=== PATIENT | female | born 1980 | race Caucasian/White ===

== ENCOUNTER 2018-11-16 12:22 | Emergency (ER) | payer SELFPAY ==
--- NOTE | 2018-11-16 12:29 | Emergency Department Report ---
Blank Doc - Documentation Documentation: This is a 38-year-old female that presents with vaginal bleeding after vo iding. Stated is about 4 months but is not sure. Patient also stated has pain in the left lower pelvic area. Denies any care. [place] present during exam. This initial assessment/diagnostic orders/clinical plan/treatment(s) is/are subject to change based on patient's health status, clinical progression and re- assessment by fellow clinical providers in the ED. Further treatment and workup at subsequent clinical providers discretion. Patient/guardians urged not to elope from the ED as their condition may be serious if not clinically assessed and managed. Initial orders include: 1- Patient sent to [facility] for further evaluation and treatment 2- labs 3- UA 4- US OB
[2018-11-16 12:30] VITALS: BP 130/76
[2018-11-16 12:47] LABS: Basophils # (Auto) 0.1 K/mm3 (0.0-0.1); Basophils % (Auto) 0.7 % (0.0-1.8); Eosinophils # (Auto) 0.3 K/mm3 (0.0-0.4); Eosinophils % (Auto) 2.6 % (0.0-4.3); Lymphocytes # (Auto) 3.6 K/mm3 (1.2-5.4); Lymphocytes % (Auto) 29.1 % (13.4-35.0); Mean Corpuscular HGB Conc 36 % (30-34); Mean Corpuscular Volume 90 fl (79-97); Monocytes # (Auto) 0.8 K/mm3 (0.0-0.8); Monocytes % (Auto) 6.6 % (0.0-7.3); Platelet Count 345 K/mm3 (140-440); Red Blood Count 4.32 M/mm3 (3.65-5.03); Red Cell Distribution Width 12.4 % (13.2-15.2)
[2018-11-16 12:55] LABS: Hemoglobin 14.1 gm/dl (10.1-14.3)
[2018-11-16 13:34] LABS: Amorphous Crystals,Urine Few; Bacteria,Urine 1+ /HPF (Negative); Bilirubin,Urine NEG (Negative); Blood,Urine NEG (Negative); Color,Urine Yellow (Yellow); Protein,Urine <15 mg/dL mg/dL (Negative); Urobilinogen,Urine < 2.0 mg/dL (<2.0)
--- NOTE | 2018-11-16 14:17 | Ultrasound Report ---
OB sonogram: History: Pelvic pain with vaginal bleeding. Findings: Uterus measures 14.6 x 6.5 x 7.3 cm. Single intrauterine gestation is noted. CRL of fetus is 39.1 mm corresponding to 10 weeks and 6 days of gestation. No heart rate was observed. Right ovary 2.5 x 2.2 x 2.2 cm. No mass. Left ovary 2.9 x 2.1 x 2.2 cm. No mass. Impression: Intrauterine demise.
--- NOTE | 2018-11-16 14:41 | Emergency Department Report ---
ED Female HPI - General Chief complaint: Vaginal Bleeding Stated complaint: /STOMACH PAIN Time Seen by Provider: 11/16/18 12:26 Source: patient Mode of arrival: Ambulatory Limitations: No Limitations - History of Present Illness Initial comments: This is a 38-year-old 002 who presents at approximately tingling sensation stating that she is expressing some light vaginal bleeding for the past 5 days. Patient states that today she starts racing a little bit of pelvic pain so she decided coming to be evaluated. Patient states that she just recently moved here from [place] and has not seen an SAP CRM DEVELOPER for this . She denies nausea vomiting chest pain shortness of breath or any other symptoms. MD Complaint: vaginal bleeding - Related Data Allergies Allergy/AdvReac Type Severity Reaction Status Date / Time No Known Allergies Allergy Unverified 11/16/18 12:25 ED Review of Systems ROS: Stated complaint: /STOMACH PAIN Other details as noted in HPI Comment: All other systems reviewed and negative ED Past Medical Hx - Past Medical History Previous Medical History?: No - Surgical History Past Surgical History?: No - Social History Smoking Status: Current Every Day Smoker Substance Use Type: None ED Physical Exam - General Limitations: No Limitations General appearance: alert, in no apparent distress - Head Head exam: Present: atraumatic, normocephalic - Eye Eye exam: Present: normal appearance - ENT ENT exam: Present: mucous membranes moist - Neck Neck exam: Present: normal inspection - Respiratory Respiratory exam: Present: normal lung sounds bilaterally. Absent: respiratory distress - Cardiovascular Cardiovascular Exam: Present: regular rate, normal rhythm. Absent: systolic murmur, diastolic murmur, rubs, gallop - GI/Abdominal GI/Abdominal exam: Present: soft, normal bowel sounds. Absent: distended, tenderness, guarding, rebound - Extremities Exam Extremities exam: Present: normal inspection - Back Exam Back exam: Present: normal inspection - Neurological Exam Neurological exam: Present: alert, oriented X3 - Psychiatric Psychiatric exam: Present: normal affect, normal mood - Skin Skin exam: Present: warm, dry, intact, normal color. Absent: rash ED Course Vital Signs 11/16/18 12:26 Temperature 98.2 F Pulse Rate 82 Respiratory 16 Rate Blood Pressure 130/76 O2 Sat by Pulse 100 Oximetry ED Medical Decision Making - Lab Data Result diagrams: 11/16/18 12:37 - Radiology Data Radiology results: report reviewed, image reviewed Ultrasound Report Signed Patient: PATRICK PISANO MR#: [id number] 7 : 1980 Acct:[id number] Age/Sex: 38 / F ADM Date: 11/16/18 Loc: ED Attending Dr: Ordering Physician: ESTEPHANIA MANCINI NP Date of Service: 11/16/18 Procedure(s): US OB <= 14 weeks fetus Accession Number(s): [id number] cc: ESTEPHANIA MANCINI NP OB sonogram: History: Pelvic pain with vaginal bleeding. Findings: Uterus measures 14.6 x 6.5 x 7.3 cm. Single intrauterine gestation is noted. CRL of fetus is 39.1 mm corresponding to 10 weeks and 6 days of gestation. No heart rate was observed. Right ovary 2.5 x 2.2 x 2.2 cm. No mass. Left ovary 2.9 x 2.1 x 2.2 cm. No mass. Impression: Intrauterine demise. Transcribed By: PTP Dictated By: RHEA PARKER MD Electronically Authenticated By: RHEA PARKER MD Signed Date/Time: 11/16/18 7458 - Medical Decision Making 38-year-old female presents with intrauterine demise per Ultrasound. Discussed case with SAP CRM DEVELOPER attending Dr. Wiggins who agreed for patient to follow- up in his office outpatient to schedule it D&C. Patient understood all instructions. Patient is stable upon discharge she is not having any BLEEDING BLEEDING IS CONTROLLED. VITAL SIGNS ARE NORMAL SHE IS IN NO DISTRESS Bleeding precautions given to patient. Discussed the patient. Bleeding worsens to return to ED immediately. Critical care attestation.: If time is entered above; I have spent that time in minutes in the direct care of this critically ill patient, excluding procedure time. ED Disposition Clinical Impression: IUFD at less than 20 weeks of gestation Disposition: DC-01 TO HOME OR SELFCARE Is pt being admited?: No Does the pt Need Aspirin: No Condition: Stable Instructions: Threatened Miscarriage (ED), Spontaneous Miscarriage (ED) Additional Instructions: Make sure to follow up with the SAP CRM DEVELOPER as discussed. Call and make an appointment with Dr. Jermaine Wiggins who was seen ON office this week to schedule dilation and curettage. EKG Tylenol as stated for pain or Motrin. If you have any worsening symptoms or develop new symptoms please return to ED immediately. Referrals: MARION CHURCH MD [Primary Care Provider] - 3-5 Days JERMAINE WIGGINS MD [Staff Physician] - 3-5 Days Time of Disposition: 15:00
== END 2018-11-16 15:13 | disposition home or self-care (01) ==
LOC: ED 12:22
DX: O02.1 Missed abortion (principal); O99.331 Smoking (tobacco) complicating pregnancy, first trimester; F17.200 Nicotine dependence, unspecified, uncomplicated; Z3A.10 10 weeks gestation of pregnancy
CPT/HCPCS: 36415; 76801; 81001; 84702; 85025; 86850; 86900; 86901

== ENCOUNTER 2018-11-20 23:20 | Emergency (ER) | payer OTHER ==
[2018-11-20 23:26] VITALS: BP 120/82
[2018-11-20 23:44] LABS: Basophils # (Auto) 0.1 K/mm3 (0.0-0.1); Basophils % (Auto) 0.6 % (0.0-1.8); Eosinophils # (Auto) 0.4 K/mm3 (0.0-0.4); Hematocrit 41.2 % (30.3-42.9); Hemoglobin 14.4 gm/dl (10.1-14.3); Lymphocytes # (Auto) 3.9 K/mm3 (1.2-5.4); Lymphocytes % (Auto) 34.8 % (13.4-35.0); Mean Corpuscular HGB Conc 35 % (30-34); Mean Corpuscular Volume 90 fl (79-97); Monocytes # (Auto) 0.6 K/mm3 (0.0-0.8); Monocytes % (Auto) 5.2 % (0.0-7.3); Platelet Count 375 K/mm3 (140-440); Red Blood Count 4.59 M/mm3 (3.65-5.03); Red Cell Distribution Width 12.5 % (13.2-15.2)
[2018-11-21] MEDS ORDERED: TYLENOL PO ONE (00:04)
[2018-11-21] MEDS ORDERED: ZOFRAN ODT PO ONE (00:04)
[2018-11-21 00:06] LABS: BUN/Creatinine Ratio 24; Blood Urea Nitrogen 12 mg/dL (7-17); Calcium 9.5 mg/dL (8.4-10.2); Hemolysis Index 9
[2018-11-21 00:19] LABS: Bilirubin,Urine NEG (Negative); Blood,Urine LG (Negative); Color,Urine Red (Yellow); Urobilinogen,Urine < 2.0 mg/dL (<2.0)
[2018-11-21 00:24] LABS: RBC,Urine > 182.0 /HPF (0.0-6.0); WBC,Urine > 182.0 /HPF (0.0-6.0)
[2018-11-21 00:25] LABS: Mucus,Urine 1+ /HPF
--- NOTE | 2018-11-21 00:51 | Emergency Department Report ---
ED HPI - General Chief complaint: Vaginal Bleeding Stated complaint: MISCARRIAGE/BLEEDING/PAIN Time Seen by Provider: 11/21/18 00:03 Source: patient Mode of arrival: Ambulatory Limitations: No Limitations - History of Present Illness Initial comments: Patient 38-year-old female patient presents for abdominal pain with vaginal bleeding 2 days states she passed some clots and yesterday there is approximately 11 weeks patient is A0 patient does not currently have an VISITOR USE ASSISTANT doctor there is no fevers or chills is no dizziness no lightheadedness no nausea vomiting abdominal pain is described as 4/10 cramping that is continuous MD Complaint: abdominal pain, vaginal bleeding Onset/Timin -: days(s) Location: pelvis Radiation: LLQ, RLQ Severity: moderate Severity scale (0 -10): 4 Quality: cramping Consistency: constant Improves with: none Worsens with: none Associated symptoms: vaginal bleeding Vaginal bleeding: clots :: Yes Number of weeks : 11 OB History - Current : no complications OB History - Previous Pregnancies: no complications - Related Data : 3 Para: 2 Ab: 0 Previous Rx's Medication Instructions Recorded Last Taken Type Ibuprofen 800 mg PO TID PRN #30 tablet 11/21/18 Unknown Rx Nitrofurantoin Monohyd/M-Cryst 100 mg PO BID 7 Days #14 capsule 11/21/18 Unknown Rx [Macrobid 100 mg Capsule] Allergies Allergy/AdvReac Type Severity Reaction Status Date / Time No Known Allergies Allergy Unverified 11/16/18 12:25 ED Review of Systems ROS: Stated complaint: MISCARRIAGE/BLEEDING/PAIN Other details as noted in HPI Constitutional: denies: chills, fever Eyes: denies: eye pain, eye discharge, vision change ENT: denies: ear pain, throat pain Respiratory: denies: cough, shortness of breath, wheezing Cardiovascular: as per HPI Endocrine: no symptoms reported Gastrointestinal: abdominal pain, nausea, vomiting. denies: diarrhea, constipation, hematemesis, melena, hematochezia Genitourinary: denies: urgency, dysuria, frequency, hematuria, discharge, abnormal menses, dyspareunia Musculoskeletal: denies: back pain, joint swelling, arthralgia Skin: denies: rash, lesions ED Past Medical Hx - Past Medical History Previous Medical History?: No - Surgical History Past Surgical History?: No - Social History Smoking Status: Never Smoker Substance Use Type: None - Medications Home Medications: Home Medications Medication Instructions Recorded Confirmed Last Taken Type Ibuprofen 800 mg PO TID PRN #30 tablet 11/21/18 Unknown Rx Nitrofurantoin Monohyd/M-Cryst 100 mg PO BID 7 Days #14 capsule 11/21/18 Unknown Rx [Macrobid 100 mg Capsule] ED Physical Exam - General Limitations: No Limitations ED Course Vital Signs 11/20/18 23:23 Temperature 98.2 F Pulse Rate 79 Respiratory 18 Rate Blood Pressure 120/82 O2 Sat by Pulse 100 Oximetry ED Medical Decision Making - Lab Data Result diagrams: 11/20/18 23:27 11/20/18 23:32 Labs 11/20/18 11/20/18 11/20/18 23:27 23:27 23:32 WBC 11.3 H RBC 4.59 Hgb 14.4 H Hct 41.2 MCV 90 MCH 31 MCHC 35 H RDW 12.5 L Plt Count 375 Lymph % (Auto) 34.8 [place] % (Auto) 5.2 Eos % (Auto) 4.0 Baso % (Auto) 0.6 Lymph # 3.9 [place] # 0.6 Eos # 0.4 Baso # 0.1 Seg Neutrophils % 55.4 Seg Neutrophils # 6.3 Sodium 141 Potassium 3.5 L Chloride 103.4 Carbon Dioxide 27 Anion Gap 14 BUN 12 Creatinine 0.5 L Estimated GFR > 60 BUN/Creatinine Ratio 24 Glucose 115 H Calcium 9.5 HCG, Quant 19.28 H Urine Color Urine Turbidity Urine pH Ur Specific [place] Urine Protein Urine Glucose (UA) Urine Ketones Urine Blood Urine Nitrite Urine Bilirubin Urine Urobilinogen Ur Leukocyte Esterase Urine WBC (Auto) Urine RBC (Auto) U Epithel Cells (Auto) Urine Mucus 11/20/18 23:41 WBC RBC Hgb Hct MCV MCH MCHC RDW Plt Count Lymph % (Auto) [place] % (Auto) Eos % (Auto) Baso % (Auto) Lymph # [place] # Eos # Baso # Seg Neutrophils % Seg Neutrophils # Sodium Potassium Chloride Carbon Dioxide Anion Gap BUN Creatinine Estimated GFR BUN/Creatinine Ratio Glucose Calcium HCG, Quant Urine Color Red Urine Turbidity Hazy Urine pH 6.0 Ur Specific [place] 1.013 Urine Protein 30 mg/dl Urine Glucose (UA) Neg Urine Ketones Neg Urine Blood Lg Urine Nitrite Neg Urine Bilirubin Neg Urine Urobilinogen < 2.0 Ur Leukocyte Esterase Tr Urine WBC (Auto) > 182.0 H Urine RBC (Auto) > 182.0 U Epithel Cells (Auto) 1.0 Urine Mucus 1+ - Radiology Data Radiology results: report reviewed, image reviewed cc: RICHI DUKE NP PROCEDURE: US OB <= 14 WEEKS FETUS TECHNIQUE: Transabdominal and endovaginal images obtained of the pelvis. HISTORY: abd pain bleeding 11 weeks COMPARISONS: No priors FINDINGS: The uterus is normal in contour and measures 10.1 cm longitudinally. The endometrium is at the upper limits of normal measuring 1 cm in thickness. There is no intrauterine gestational sac.. The right ovary is normal in contour and echotexture as seen on transabdominal images. The left ovary was not visualized. No evidence is seen of adnexal masses or fluid in the pelvic cul-de-sac. . IMPRESSION: Endometrial stripe at the upper limits of normal in thickness with no intrauter ine gestational sac visualized. Correlation with quantitative beta hCG and ultrasound follow-up rec ommended. Ectopic cannot be excluded but there are no secondary suggestive signs. Left ovary not visualized.. This document is electronically signed by Douglas Ta MD., November 21 2018 01 :57:30 AM ET Transcribed By: BONG Dictated By: DOUGLAS TA MD Electronically Authenticated By: DOUGLAS TA MD Signed Date/Time: 11/21/18158 DD/ 5 TD/TT: 11/21/18128 - Medical Decision Making Ultrasound demonstrates intrauterine yolk sac and pole UA moderate leukocytes white cells and red cells we'll treat for UTI with 1 g Rocephin will DC home on Macrobid patient will follow up with SALES VENDOR in 2 days as scheduled patient will return to emergency department should symptoms worsen at present patient is an 3 tolerating by mouth with no acute distress at this time abdominal exam is rated at 1/10 patient will be DC'd home in stable condition Critical care attestation.: If time is entered above; I have spent that time in minutes in the direct care of this critically ill patient, excluding procedure time. ED Disposition Clinical Impression: Miscarriage UTI (urinary tract infection) Qualifiers: Urinary tract infection type: acute cystitis Hematuria presence: without hematuria Qualified Code(s): N30.00 - Acute cystitis without hematuria Disposition: TO HOME OR SELFCARE Is pt being admited?: No Does the pt Need Aspirin: No Condition: Stable Instructions: Threatened Miscarriage (ED), Urinary Tract Infection in Women (ED) Prescriptions: Ibuprofen 800 mg PO TID PRN #30 tablet PRN Reason: pain Nitrofurantoin Monohyd/M-Cryst [Macrobid 100 mg Capsule] 100 mg PO BID 7 Days #14 capsule Referrals: EFRAIN THORNTON MD [Primary Care Provider] - 3-5 Days AGUSTÍN CHAO MD [Staff Physician] - 3-5 Days Forms: Work/School Release Form(ED) Time of Disposition: 02:32
--- NOTE | 2018-11-21 01:59 | Ultrasound Report ---
PROCEDURE: US OB <= 14 WEEKS FETUS TECHNIQUE: Transabdominal and endovaginal images obtained of the pelvis. HISTORY: abd pain bleeding 11 weeks COMPARISONS: No priors FINDINGS: The uterus is normal in contour and measures 10.1 cm longitudinally. The endometrium is at the upper limits of normal measuring 1 cm in thickness. There is no intrauterin e gestational sac.. The right ovary is normal in contour and echotexture as seen on transabdominal images. The left ovary was not visualized. No evidence is seen of adnexal masses or fluid in the pelvic cul-de-sac. . IMPRESSION: Endometrial stripe at the upper limits of normal in thickness with no intrauterine gestational sac vi sualized. Correlation with quantitative beta hCG and ultrasound follow-up recommended. Ectopic pregna ncy cannot be excluded but there are no secondary suggestive signs. Left ovary not visualized.. This document is electronically signed by Douglas Ta MD., November 21 2018 01:57:30 AM ET
[2018-11-21] MEDS ORDERED: XYLOCAINE 1% MPF 5 mL INFILTRATI ONE (02:26)
[2018-11-21] MEDS ORDERED: ROCEPHIN IM ONE (02:26)
--- NOTE | 2018-11-21 15:25 | Ultrasound Report ---
PROCEDURE: US OB TRANSVAGINAL TECHNIQUE: Transabdominal and transvaginal imaging of the pelvis was performed. HISTORY: abd pain bleeding 11 weeks COMPARISONS: Pelvic ultrasound performed on 11/16/2018 FINDINGS: The uterus measures 10.1 x 5.8 x 6 cm and is anteverted. An intrauterine is no longer visualized. There is some thickening and irregularity of the endometrium, which measures up to 1 cm. There is lynsey e internal flow on color Doppler imaging. The right ovary measures 2.8 x 2.1 x 2.3 cm and is normal in morphology. The left ovary is not visualized. IMPRESSION: Intrauterine is no longer visualized, concerning for failed . Some thickening and irregularity of the endometrium. Differential diagnosis includes hemorrhagic prod ucts or retained products of conception. Recommend clinical correlation. This document is electronically signed by Brittney Lackey MD., November 21 2018 03:23:20 PM ET
== END 2018-11-21 03:45 | disposition home or self-care (01) ==
LOC: ED 23:20
DX: O03.9 Complete or unspecified spontaneous abortion without complication (principal); O23.41 Unspecified infection of urinary tract in pregnancy, first trimester; Z3A.11 11 weeks gestation of pregnancy
CPT/HCPCS: 36415; 76801; 76817; 80048; 81001; 84702; 85025; 86850; 86900; 86901; 96372; 99284; J0696; Q0162

== ENCOUNTER 2020-09-19 10:41 | Emergency (ER) | payer SELFPAY ==
[2020-09-19] MEDS ORDERED: METOCLOPRAMIDE 10 MG TAB PO ONE (10:59)
[2020-09-19] MEDS ORDERED: diphenhydrAMINE 25 MG CAP PO ONE (10:59)
[2020-09-19] MEDS ORDERED: ACETAMINOPHEN 325 MG TAB PO ONE (10:59)
--- NOTE | 2020-09-19 11:06 | Emergency Department Report ---
ED Headache HPI - General Chief Complaint: Headache Stated Complaint: HEADACHE Time Seen by Provider: 09/19/20 10:59 - History of Present Illness Initial Comments: Patient is a 39-year-old female presents emergency room complaints of a headache that began a week ago. She states the headache is located around the left eye and the left temporal region. She states that she has been taking headache with some relief but the headache returns. She is currently 7 months . She states that she goes to center [facility]. She denies any abdominal pain or vaginal bleeding. She states that the left eye has been frequently watering and that the left side of her nose will run. She denies any nausea, vomiting, diarrhea, fever, vision changes, numbness, weakness, dizziness, lightheadedness, syncope, neck stiffness, thunderclap/worst headache. No past medical history. No allergies to medications. Allergies/Adverse Reactions: Allergies No Known Allergies Allergy (Verified 09/19/20 10:52) Home Medications: Ambulatory Orders Ibuprofen [Ibuprofen 800] 800 mg PO TID PRN #30 tablet 11/21/18 Nitrofurantoin Monohyd/M-Cryst [Macrobid 100 mg Capsule] 100 mg PO BID 7 Days #14 capsule 11/21/18 Acetaminophen [Tylenol] 650 mg PO Q8HR PRN #20 capsule 09/19/20 Metoclopramide [Reglan] 10 mg PO Q8HR PRN #12 tab 09/19/20 diphenhydrAMINE [Benadryl CAP] 25 mg PO Q8HR PRN #12 capsule 09/19/20 ED Review of Systems ROS: Stated complaint: HEADACHE Other details as noted in HPI Comment: All other systems reviewed and negative ED Past Medical Hx - Past Medical History Previous Medical History?: No - Surgical History Past Surgical History?: No - Social History Smoking Status: Never Smoker Substance Use Type: None - Medications Home Medications: Home Medications Medication Instructions Recorded Confirmed Last Taken Type Ibuprofen [Ibuprofen 800] 800 mg PO TID PRN #30 tablet 11/21/18 Unknown Rx Nitrofurantoin Monohyd/M-Cryst 100 mg PO BID 7 Days #14 capsule 11/21/18 Unknown Rx [Macrobid 100 mg Capsule] Acetaminophen [Tylenol] 650 mg PO Q8HR PRN #20 capsule 09/19/20 Unknown Rx Metoclopramide [Reglan] 10 mg PO Q8HR PRN #12 tab 09/19/20 Unknown Rx diphenhydrAMINE [Benadryl CAP] 25 mg PO Q8HR PRN #12 capsule 09/19/20 Unknown Rx ED Physical Exam - General Limitations: No Limitations General appearance: alert, in no apparent distress - Head Head exam: Present: atraumatic, normocephalic - Eye Eye exam: Present: normal appearance, PERRL, EOMI. Absent: scleral icterus, conjunctival injection, nystagmus, periorbital swelling, periorbital tenderness Pupils: Present: normal accommodation - ENT ENT exam: Present: mucous membranes moist - Neck Neck exam: Present: full ROM. Absent: meningismus - Respiratory Respiratory exam: Present: normal lung sounds bilaterally. Absent: respiratory distress, wheezes, rales, rhonchi, stridor, chest wall tenderness, accessory muscle use, decreased breath sounds, prolonged expiratory - Cardiovascular Cardiovascular Exam: Present: regular rate, normal rhythm, normal heart sounds. Absent: systolic murmur, diastolic murmur, rubs, gallop - Neurological Exam Neurological exam: Present: alert, oriented X3, CN II-XII intact, normal gait. Absent: motor sensory deficit - Psychiatric Psychiatric exam: Present: normal affect, normal mood - Skin Skin exam: Present: warm, dry, intact ED Course Vital Signs 09/19/20 09/19/20 10:55 13:46 Temperature 98.1 F 98.7 F Pulse Rate 85 88 Respiratory 20 20 Rate Blood Pressure 113/62 Blood Pressure 120/64 [Left] O2 Sat by Pulse 99 100 Oximetry ED Medical Decision Making - Lab Data Vital Signs 09/19/20 09/19/20 10:55 13:46 Temperature 98.1 F 98.7 F Pulse Rate 85 88 Respiratory 20 20 Rate Blood Pressure 113/62 Blood Pressure 120/64 [Left] O2 Sat by Pulse 99 100 Oximetry - Medical Decision Making Patient is a 39-year-old female presents emergency room complaints of a headache that began a week ago. She states the headache is located around the left eye and the left temporal region. She states that she has been taking headache with some relief but the headache returns. She is currently 7 months . She states that she goes to center [facility]. She denies any abdominal pain or vaginal bleeding. She states that the left eye has been frequently watering and that the left side of her nose will run. She denies any nausea, vomiting, diarrhea, fever, vision changes, numbness, weakness, dizziness, lightheadedness, syncope, neck stiffness, thunderclap/worst headache. No past medical history. No allergies to medications. Vitals are normal. No neuro d eficits on exam. Patient given medications in the ED and her symptoms significantly improved and she is at her headache is only mild 3 out of 10 now. Her symptoms appear most consistent with a cluster headache given that the pain is around the eye and she has rhinorrhea and watering from that eye. Her blood pressure is normal, no signs of preeclampsia. She has no focal neuro deficits to suggest CVA. She is not having a thunderclap headache/worst headache of life, do not suspect subarachnoid hemorrhage. She has no meningeal signs, no fever. Discussed very strict return precautions in detail with patient. Discussed the importance of follow-up with patient. Patient given prescription for reglan, Benadryl, Tylenol and advised patient to take the medications together when experiencing a headache. Advised patient Please take medication as prescribed. Please take all 3 medications together. Increase your water intake. Follow-up with your MASTER CERTIFIED RV TECHNICIAN. Return to emergency room immediately for any new or worsening symptoms including but not limited to worsening headache, vision changes, vomiting, numbness, weakness, leg swelling, chest pain, shortness of breath, etc. Critical care attestation.: If time is entered above; I have spent that time in minutes in the direct care of this critically ill patient, excluding procedure time. ED Disposition Clinical Impression: Headache Qualifiers: Headache type: unspecified Headache chronicity pattern: acute headache Intractability: not intractable Qualified Code(s): R51.9 - Headache, unspecified Disposition: DC-01 TO HOME OR SELFCARE Is pt being admited?: No Does the pt Need Aspirin: No Condition: Stable Instructions: Cluster Headache Additional Instructions: Please take medication as prescribed. Please take all 3 medications together. Increase your water intake. Follow-up with your MASTER CERTIFIED RV TECHNICIAN. Return to emergency room immediately for any new or worsening symptoms including but not limited to worsening headache, vision changes, vomiting, numbness, weakness, leg swelling, chest pain, shortness of breath, etc. Prescriptions: diphenhydrAMINE [Benadryl CAP] 25 mg PO Q8HR PRN #12 capsule PRN Reason: headache Metoclopramide [Reglan] 10 mg PO Q8HR PRN #12 tab PRN Reason: headache Acetaminophen [Tylenol] 650 mg PO Q8HR PRN #20 capsule PRN Reason: headache Referrals: PRIMARY CARE,MD [Primary Care Provider] - 2-3 Days your, fish worm grower [Other] - 2-3 Days Time of Disposition: 13:32 Print Language: PERSIAN
[2020-09-19] MEDS ORDERED: dexAMETHasone 4 MG/ML VIAL IM ONE (12:34)
[2020-09-19 13:47] VITALS: BP 120/64
== END 2020-09-19 13:59 | disposition home or self-care (01) ==
LOC: ED 10:41
DX: R51.9 Headache, unspecified (principal); Z79.899 Other long term (current) drug therapy
CPT/HCPCS: 96372; 99282; J1100

== ENCOUNTER 2020-11-10 20:36 | Inpatient (IN) | payer OTHER ==
[2020-11-10] MEDS ORDERED: LACTATED RINGERS 1,000 ML IV SCH ×2 (21:30→22:15)
[2020-11-10] MEDS ORDERED: LACTATED RINGERS 1,000 ML ONE (21:38)
[2020-11-10] MEDS ORDERED: ePHEDrine SULFATE 50 MG/1 ML INJ IV PRN (22:14)
[2020-11-10] MEDS ORDERED: PROMETHAZINE 25 MG TAB PO PRN (22:14)
[2020-11-10] MEDS ORDERED: LIDOCAINE (2%) 20 MG/1 ML VIAL 20 ML MDV INFILTRATI ONE (22:14)
[2020-11-10] MEDS ORDERED: TERBUTALINE 1 MG/1 ML INJ SUB-Q PRN (22:14)
[2020-11-10] MEDS ORDERED: MINERAL OIL 30 ML ORAL LIQD PO PRN (22:14)
[2020-11-10] MEDS ORDERED: fentaNYL 100 MCG/2 ML INJ IV PRN (22:14)
[2020-11-10] MEDS ORDERED: ONDANSETRON 4 MG/2 ML INJ IV PRN (22:14)
[2020-11-10] MEDS ORDERED: BUTORPHANOL 2 MG/1 ML INJ IV PRN (22:14)
[2020-11-10 22:33] LABS: Hematocrit 38.8 % (30.3-42.9); Hemoglobin 13.1 gm/dl (10.1-14.3); Mean Corpuscular HGB Conc 34 % (30-34); Mean Corpuscular Volume 92 fl (79-97); Platelet Count 238 K/mm3 (140-440); Red Cell Distribution Width 14.8 % (13.2-15.2)
[2020-11-10 22:45] LABS: Bacteria,Urine 1+ /HPF (Negative); Bilirubin,Urine NEG (Negative); Blood,Urine NEG (Negative); Color,Urine Yellow (Yellow); Mucus,Urine FEW /HPF; Protein,Urine <15 mg/dL mg/dL (Negative); Urobilinogen,Urine < 2.0 mg/dL (<2.0)
[2020-11-10] MEDS ORDERED: OXYTOCIN DRIP 30 UNITS/500 ML BAG IV SCH ×2 (23:00)
[2020-11-10] MEDS ORDERED: NalbUPHINE 10 MG/1 ML INJ IV PRN (23:30)
--- NOTE | 2020-11-10 23:37 | History and Physical Report ---
History of Present Illness Date of examination: 11/10/20 Date of admission: 11/10/20 22:14 Chief complaint: feeling ctx and believes she is in labor History of present illness: at 38.2wks by LMP c/w [facility]/S. care at [facility]. pt c/o ctx, admits to , denies LOF or vag bleed or headache. Past History Past Medical History: no pertinent history Past Surgical History: no surgical history Family/Genetic History: diabetes (mother) Social history: no significant social history - Obstetrical History Expected Date of Delivery: 11/22/20 Actual Gestation: 38 Week(s) 2 Day(s) : 4 Para: 2 Hx # Term Pregnancies: 1 Spontaneous Abortions: 1 Number of Living Children: 2 Medications and Allergies Allergies Allergy/AdvReac Type Severity Reaction Status Date / Time No Known Allergies Allergy Verified 09/19/20 10:52 Home Medications Medication Instructions Recorded Confirmed Last Taken Type Ibuprofen [Ibuprofen 800] 800 mg PO TID PRN #30 tablet 11/21/18 10/20/20 Rx Nitrofurantoin Monohyd/M-Cryst 100 mg PO BID 7 Days #14 capsule 11/21/18 09/15/20 Rx [Macrobid 100 mg Capsule] Acetaminophen [Tylenol] 650 mg PO Q8HR PRN #20 capsule 09/19/20 10/27/20 Rx Metoclopramide [Reglan] 10 mg PO Q8HR PRN #12 tab 09/19/20 10/27/20 Rx diphenhydrAMINE [Benadryl CAP] 25 mg PO Q8HR PRN #12 capsule 09/19/20 10/28/20 [address] [facility] 1 mg PO DAILY 11/10/20 11/10/20 11/10/20 08:00 History Active Meds: Active Medications Ephedrine Sulfate (Ephedrine Sulfate 50 Mg/1 Ml Inj) 10 mg IV Q2M PRN PRN Reason: Hypotension Fentanyl (Fentanyl 100 Mcg/2 Ml Inj) 100 mcg IV Q2H PRN PRN Reason: Pain,Severe (7-10) LABOR PAIN Oxytocin/Sodium Chloride (Pitocin/Ns 30 Unit/500ml) 30 units in 500 mls @ 2 mls/hr IV TITR FIDENCIO; Protocol Lactated Ringer's (Lactated Ringers) 1,000 mls @ 125 mls/hr IV DIRECT FIDENCIO Oxytocin/Sodium Chloride (Pitocin/Ns 30 Unit/500ml) 30 units in 500 mls @ 40 mls/hr IV TITR FIDENCIO; Protocol Mineral Oil (Mineral Oil 30 Ml Oral Liqd) 30 ml PO QHS PRN PRN Reason: Constipation Nalbuphine HCl (Nalbuphine 10 Mg/1 Ml Inj) 10 mg IV Q2H PRN PRN Reason: Pain, Moderate (4-6) Ondansetron HCl (Ondansetron 4 Mg/2 Ml Inj) 4 mg IV Q8H PRN PRN Reason: Nausea And Vomiting Promethazine HCl (Promethazine 25 Mg Tab) 25 mg PO Q6H PRN PRN Reason: Nausea And Vomiting Terbutaline Sulfate (Terbutaline 1 Mg/1 Ml Inj) 0.25 mg SUB-Q ONCE PRN PRN Reason: Hyperstimulation/Hypertonicity Review of Systems All systems: negative (feeling ctx and declines epidural) - Vital Signs Vital signs: Vital Signs Temp Pulse Resp BP Pulse Ox 99.3 F 86 16 111/68 98 11/10/20 21:15 11/10/20 21:15 11/10/20 21:15 11/10/20 21:15 11/10/20 21:15 Temp Pulse Resp BP Pulse Ox 98.1 F 82 14 123/75 98 11/10/20 22:54 11/10/20 22:54 11/10/20 22:54 11/10/20 22:54 11/10/20 21:15 - Physical Exam Breasts: Positive: deferred Cardiovascular: Regular rate Lungs: Positive: Normal air movement Genitourinary (Female): Positive: normal external genitalia Vulva: both: normal Vagina: Positive: normal moisture Uterus: Positive: enlarged (non-tender gravid) - Obstetrical FHR: category 1 Uterine Contraction Monitor Mode: External Cervical Dilatation: 6 (prev 4 by triage nurse) Cervical Effacement Percentage: 80 station: -1 Uterine Contraction Pattern: Regular Results Result Diagrams: 11/10/20 21:45 Abnormal lab results 11/10/20 11/10/20 Range/Units 21:45 21:45 WBC 14.1 H (4.5-11.0) K/mm3 Urine pH 8.0 H (5.0-7.0) All other labs normal. Assessment and Plan at 38.2wks in active labor, GBS negative; advanced maternal age 1. admit to labor and delivery, order cbc, blood type and screen 2. AROM done with light meconium stained fluid 3. Will augment only if no pelvic change 4. May have IV pain med as needed and epidural if pt changes her mind 5. Expect
--- NOTE | 2020-11-11 00:32 | Procedure Note ---
OB Delivery Note - Delivery Date of Delivery: 11/11/20 Surgeon: FRANKIE STANTON Estimated blood loss: 300cc - Vaginal Delivery presentation: vertex Delivery position: OA Intrapartum events: precipitous labor- <3hr Delivery induction: none Delivery augmentation: rupture of membranes Delivery monitor: external FHT, external uterine Route of delivery: Delivery placenta: spontaneous Episiotomy: none Delivery laceration: 1st degree (right labia and repair done with 2-0 chromic running locked) Delivery repair: chromic Anesthesia: none Delivery comments: Precipitous vaginal delivery of viable female with nurse to bedside. Pt sustained right labial laceration repaired with 2-0chromic and local lidocaine. Placenta delivered spontaneously with 3v cord. Cervix viewed and no lacerations seen. Bimanual massage done and pitocin given. Mom and baby stable and MIKE nurse notified of meconium stained fluid. - A at 1 minute: 8 at 5 minutes: 9 Gender: Female (wt 3711g)
[2020-11-11] MEDS ORDERED: ERYTHROMYCIN 5 MG/1 GM OPHTH OINT OU ONE (00:55)
[2020-11-11] MEDS ORDERED: PHYTONADIONE 1 MG/0.5 ML *NICU*INJ IM ONE (00:55)
[2020-11-11] MEDS ORDERED: AMMONIA INHALANT IH ONE (03:10)
[2020-11-11] MEDS ORDERED: LANOLIN/ZINC/DIMETHICONE (LANSINOH) 7 GM TP PRN (03:31)
[2020-11-11] MEDS ORDERED: OXYTOCIN DRIP 30 UNITS/500 ML BAG IV SCH (03:31)
[2020-11-11] MEDS ORDERED: MAGNESIUM HYDROXIDE (MOM) ORAL LIQD UDC PO PRN (03:31)
[2020-11-11] MEDS ORDERED: oxyCODONE /ACETAMINOPHEN 5-325MG TAB PO PRN (03:31)
[2020-11-11] MEDS ORDERED: PROMETHAZINE 25 MG TAB PO PRN (03:31)
[2020-11-11] MEDS ORDERED: diphenhydrAMINE 25 MG CAP PO PRN (03:31)
[2020-11-11] MEDS ORDERED: PROMETHAZINE 25 MG RECT SUPP PR PRN (03:31)
[2020-11-11] MEDS ORDERED: WITCH HAZEL/ GLYCERIN PAD TP PRN (03:31)
[2020-11-11] MEDS ORDERED: ONDANSETRON 4 MG/2 ML INJ IV PRN (03:31)
[2020-11-11] MEDS: IBUPROFEN 600 MG TAB PO SCH ×4 (03:46→23:59)
[2020-11-11] MEDS: PRENATAL VIT27-FE FUMARATE-FOLIC ACID VIT TAB PO SCH (09:22)
[2020-11-11 15:53] LABS: Hematocrit 30.4 % (30.3-42.9); Hemoglobin 10.1 gm/dl (10.1-14.3)
[2020-11-12] MEDS ORDERED: MEASLES, MUMPS & RUBELLA 12,500 UNIT/0.5 ML VACCINE SUB-Q ONE (00:37)
[2020-11-12] MEDS: IBUPROFEN 600 MG TAB PO SCH ×3 (05:57→15:40)
[2020-11-12] MEDS: PRENATAL VIT27-FE FUMARATE-FOLIC ACID VIT TAB PO SCH (10:20)
--- NOTE | 2020-11-12 10:20 | Progress Note ---
Assessment and Plan A: S/P POS COVID 19 P: Continue routine pp care May d/c home when baby is d/c'd Subjective - Subjective Date of service: 11/12/20 Principal diagnosis: s/p Patient reports: appetite normal, voiding normally, pain well controlled, ambulating normally : doing well, bottle feeding Objective - Vital Signs Latest vital signs: Vital Signs Temp Pulse Resp BP BP Pulse Ox 11/12/20 08:36 98.1 F 74 16 107/68 98 11/12/20 02:25 98.3 F 80 20 112/68 95 11/11/20 16:14 98.4 F 66 18 109/59 98 Intake and Output 11/11/20 11/12/20 11/12/20 22:59 06:59 14:59 Intake Total 480 120 Output Total 1000 Balance -520 120 Intake: Oral 240 120 Intake, Free Water 240 Output: Urine 1000 Void 1000 Other: Total, Intake Amount 240 120 Total, Output Amount 600 # Voids Void 1 - Exam Breasts: Present: normal Abdomen: Present: normal appearance, soft, normal bowel sounds Vulva: both: normal Uterus: Present: normal, firm Extremities: Present: normal Incision: Present: normal, intact - Labs Labs: Abnormal lab results 11/11/20 Range/Units Unknown Coronavirus (PCR) Positive A (Negative)
[2020-11-13] MEDS: PRENATAL VIT27-FE FUMARATE-FOLIC ACID VIT TAB PO SCH (10:24)
[2020-11-13] MEDS: IBUPROFEN 600 MG TAB PO SCH (10:24)
--- NOTE | 2020-11-13 10:53 | Progress Note ---
Assessment and Plan A: PP Day #2 Stable +Covid 19 P: Follow Routine Orders D/C home today RTO in 6 Weeks Subjective - Subjective Date of service: 11/13/20 Principal diagnosis: s/p Patient reports: appetite normal, voiding normally, pain well controlled, flatus, bowel movement, ambulating normally [place]: doing well, bottle feeding (and ) Objective - Vital Signs Latest vital signs: Vital Signs Temp Pulse Resp BP BP Pulse Ox 11/13/20 08:01 98.1 F 91 H 18 108/65 97 11/13/20 00:00 98.6 F 78 16 101/69 11/12/20 16:20 98.9 F 90 20 105/56 99 Intake and Output 11/12/20 11/13/20 11/13/20 22:59 06:59 14:59 Intake Total 220 200 Balance 220 200 Intake: Oral 220 200 Other: Total, Intake Amount 220 200 # Voids Void 1 1 - Exam Breasts: Present: normal Cardiovascular: Present: Regular rate Lungs: Present: Clear to auscultation, Normal air movement Abdomen: Present: normal appearance, soft, normal bowel sounds Uterus: Present: normal, firm, fundal height below umbilicus Extremities: Present: normal
--- NOTE | 2020-11-13 11:28 | Discharge Summary ---
Providers - Providers Date of Admission: 11/10/20 22:14 Date of discharge: 11/13/20 Attending physician: FRANKIE STANTON Primary care physician: FRANKIE STANTON Hospitalization Reason for admission: active labor Delivery: Episiotomy: none Laceration: 1st degree Other procedures: none complications: none Discharge diagnosis: IUP at term delivered baby: female Condition at discharge: Good Disposition: DC-01 TO HOME OR SELFCARE Plan - Provider Discharge Summary Activity: routine, no sex for 6 weeks, no heavy lifting 4 weeks, no strenuous exercise Diet: routine Instructions: routine Additional instructions: [] Smoking cessation referral if applicable(refer to patient education folder for contact #) [] Refer to [facility] Book[facility] Call your doctor immediately for: * Fever > 100.5 * Heavy vaginal bleeding ( >1 pad per hour) * Severe persistent headache * Shortness of breath * Reddened, hot, painful area to leg or breast * Drainage or odor from incision. * Keep incision clean and dry at all times and follow doctor's instructions regarding bathing/showering - Follow up plan Follow up: FRANKIE STANTON MD [Primary Care Provider] - 6 Weeks
[2020-11-13 17:04] VITALS: BP 109/65
== END 2020-11-13 16:00 | disposition home or self-care (01) | DRG 805 ==
LOC: TRG 20:36 → APU 20:38 → OBSVTOIN 22:14 → LD 22:14 → TRG 22:14 → OB 11-11 04:49
PROVIDERS: ADMIT Obstetrics & Gynecology; ATTEND Obstetrics & Gynecology
PROC: 10E0XZZ Delivery of Products of Conception, External Approach (ICD-10-PCS; principal; 2020-11-11)
PROC: 10907ZC Drainage of Amniotic Fluid, Therapeutic from Products of Conception, Via Natural or Artificial Opening (ICD-10-PCS; 2020-11-11)
PROC: 0HQ9XZZ Repair Perineum Skin, External Approach (ICD-10-PCS; 2020-11-11)
DX: O77.0 Labor and delivery complicated by meconium in amniotic fluid (principal); U07.1 COVID-19; Z37.0 Single live birth; O70.0 First degree perineal laceration during delivery; O62.3 Precipitate labor; O75.5 Delayed delivery after artificial rupture of membranes; Z3A.38 38 weeks gestation of pregnancy
CPT/HCPCS: 36415; 81001; 85014; 85018; 85027; 86850; 86900; 86901; G0378; U0003